=== PATIENT | female | born 1965 | race Caucasian/White ===

== ENCOUNTER 2016-11-30 06:09 | Emergency (ER) | payer OTHER ==
[2016-11-30] MEDS ORDERED: IBUPROFEN 600 MG TABLET ONE (06:54)
[2016-11-30] MEDS ORDERED: ACETAMINOPHEN 500 MG TABLET ONE (06:54)
[2016-11-30] MEDS ORDERED: OXYCODONE HCL 5 MG TABLET ONE (06:55)
[2016-11-30] MEDS ORDERED: LIDOCAINE 5% PATCH TD ONE (07:15)
--- NOTE | 2016-11-30 07:21 | RAD ---
EXAMINATION:CHEST - 2 VIEWS CLINICAL INDICATION: Cough for one week. COMPARISON:none FINDINGS: The cardiomediastinal silhouette is within normal limits. There is no adenopathy identified. There is no pleural effusion. The lungs are clear. The osseous structures are unremarkable for age. IMPRESSION: Negative PA and lateral views of the chest. No acute cardiopulmonary process is identified.
== END 2016-11-30 07:31 | disposition home or self-care (01) ==
LOC: ED 06:09
DX: R07.81 Pleurodynia (principal); J45.909 Unspecified asthma, uncomplicated
CPT/HCPCS: 71020; 99283 ×2; A9270 ×4